=== PATIENT | female | born 1965 | race Caucasian/White ===

== ENCOUNTER 2020-03-24 09:24 | Emergency (ER) | payer OTHER ==
[~2020-03-24] VITALS: Ht 172.7 cm; Wt 88.0 kg
[~2020-03-24 09:24] MED LIST: ATOR20 PO; METF500 PO; VENLAFAXINE HC150 M2 PO
== END 2020-03-24 10:43 | disposition home or self-care (01) ==
LOC: ER 09:24
DX: S52.501A Unspecified fracture of the lower end of right radius, initial encounter for closed fracture (principal); Z79.84 Long term (current) use of oral hypoglycemic drugs; Z79.899 Other long term (current) drug therapy; W19.XXXA Unspecified fall, initial encounter
CPT/HCPCS: 29105; 99281-25

== ENCOUNTER 2020-07-01 07:06 | Day surgery (SDC) | payer OTHER ==
[~2020-07-01] VITALS: Ht 172.7 cm; Wt 88.2 kg
[~2020-07-01 07:06] MED LIST changes: +ATOR10 PO; +ATORVASTATIN CA10 MG PO; +GLUCOPHAGE1000 MG PO; +METFORMIN HCL1000 MG PO
[2020-07-01] MEDS ORDERED: LANS30EC (07:29)
== END 2020-07-01 10:10 | disposition home or self-care (01) ==
LOC: ORSCSDS 07:06
PROVIDERS: Orthopaedic Surgery
PROC: 0LB50ZZ Excision of Right Lower Arm and Wrist Tendon, Open Approach (ICD-10-PCS; principal; 2020-07-01 08:15)
PROC: 0LU507Z Supplement Right Lower Arm and Wrist Tendon with Autologous Tissue Substitute, Open Approach (ICD-10-PCS; principal; 2020-07-01 08:15)
DX: M18.11 Unilateral primary osteoarthritis of first carpometacarpal joint, right hand (principal); E11.9 Type 2 diabetes mellitus without complications; Z79.84 Long term (current) use of oral hypoglycemic drugs; Z79.899 Other long term (current) drug therapy
CPT/HCPCS: 82947; C1713; J0330; J0690; J1100; J2250; J2370; J2405; J2704; J2765; J2795; J3010; J7120

== ENCOUNTER 2024-12-05 07:42 | Day surgery (SDC) | payer OTHER ==
[~2024-12-05] VITALS: Ht 172.7 cm; Wt 82.6 kg
[~2024-12-05 07:42] MED LIST changes: +LANS30EC
[2024-12-05] MEDS ORDERED: ZOCOR20 MG PO (08:01)
[2024-12-05] MEDS ORDERED: LOSA25 PO (08:03)
[2024-12-05] MEDS ORDERED: OZEMPIC1 MG/0.72 SQ (08:03)
[2024-12-05] MEDS ORDERED: Lactated Ringer's 1,000 ML IV ONE (08:19)
[2024-12-05] MEDS ORDERED: CeFAZolin Sodium 2,000 MG VIAL ONE (08:49)
[2024-12-05] MEDS ORDERED: FentaNYL Citrate 50 MCG/ML 2 ML Injection ONE (08:54)
[2024-12-05] MEDS ORDERED: Ondansetron HCl 2 MG / ML 2ML Vial ONE (08:54)
[2024-12-05] MEDS ORDERED: Dexamethasone Sod Phos 10 MG/ML 1ML VIAL ONE (08:54)
[2024-12-05] MEDS ORDERED: propofoL 20 ML IV ONE (08:54)
[2024-12-05] MEDS ORDERED: Ketorolac Tromethamine 30mg Vial ONE (08:55)
[2024-12-05] MEDS ORDERED: Bupivacaine 0.5% Inj 50 ML Vial (NON CHARGE) INJ ONE (09:21)
--- NOTE | 2024-12-05 10:10 | NUR ---
12/05/24 1010 NORM ROBIN O2 DECREASED FROM 10L TO 5L VIA FACE TENT (TRAIL)
[2024-12-05 10:30] VITALS: BP 127/88
--- NOTE | 2024-12-05 10:33 | NUR ---
12/05/24 1033 NORM ROBIN PT AT BEDSIDE. PT EATING AND DRINKING W/O DIFF.
[2024-12-05] MEDS ORDERED: HYDROcodone 5-APAP 325 TAB ONE (10:42)
== END 2024-12-05 11:16 | disposition home or self-care (01) ==
LOC: ORSCSDS 07:42
PROVIDERS: Orthopaedic Surgery
PROC: 0SBC4ZZ Excision of Right Knee Joint, Percutaneous Endoscopic Approach (ICD-10-PCS; principal; 2024-12-05 09:00)
DX: S83.241A Other tear of medial meniscus, current injury, right knee, initial encounter (principal); M71.21 Synovial cyst of popliteal space [Baker], right knee; M17.11 Unilateral primary osteoarthritis, right knee; M94.261 Chondromalacia, right knee; I10 Essential (primary) hypertension; E11.9 Type 2 diabetes mellitus without complications; K21.9 Gastro-esophageal reflux disease without esophagitis; Z79.84 Long term (current) use of oral hypoglycemic drugs; Z79.899 Other long term (current) drug therapy
CPT/HCPCS: 82947; A9270; J0690; J1100; J1885; J2405; J2704; J3010; J7120